=== PATIENT | female | born 1960 | race Caucasian/White ===

== ENCOUNTER 2016-11-13 13:45 | Emergency (ER) | payer OTHER ==
[~2016-11-13] VITALS: Ht 160 cm; Wt 92.2 kg
[~2016-11-13 13:45] MED LIST: AMA2; ASPI-1159; METF500T; PIOG15TA6; RAMI2.5C6; SIMV5TAB
[2016-11-13 15:07] LABS: CHLORIDE 105 mEq/L (98-107)
[2016-11-13 15:12] LABS: HEMATOCRIT 38.3 % (36.0-48.0); HEMOGLOBIN 13.1 g/dL (12.0-16.0); MEAN CORPUSCULAR HEMOGLOBIN 29.6 pg (28.0-32.0); MEAN CORPUSCULAR VOLUME 86.5 fL (81.0-99.0); PLATELET 333 x1000/uL (130-400); RED BLOOD CELL COUNT 4.42 mill/uL (4.2-5.4)
[2016-11-13 15:13] LABS: CARBON DIOXIDE 23 mEq/L (21-32)
[2016-11-13 19:21] VITALS: BP 141/76
== END 2016-11-13 19:24 | disposition home or self-care (01) ==
LOC: ER 16:22
DX: H53.2 Diplopia (principal); H43.393 Other vitreous opacities, bilateral; I10 Essential (primary) hypertension; E11.9 Type 2 diabetes mellitus without complications; Z79.82 Long term (current) use of aspirin; Z98.890 Other specified postprocedural states
CPT/HCPCS: 36415; 70450; 80048; 82962; 85027; 93005; 99285; Z7610

== ENCOUNTER 2018-03-10 20:16 | Emergency (ER) | payer OTHER ==
[~2018-03-10] VITALS: Ht 157.5 cm; Wt 91.7 kg
[~2018-03-10 20:16] MED LIST changes: -SIMV5TAB; +SIMV5TAB2
[2018-03-11] MEDS ORDERED: KETOROLAC 30MG/ML VIAL IV STA (01:32)
[2018-03-11] MEDS ORDERED: SODIUM CHLORIDE 0.9% 1,000 ML IV ONE (01:32)
[2018-03-11] MEDS ORDERED: FAMOTIDINE 20MG/2ML VIAL IV STA (01:32)
[2018-03-11 02:02] LABS: BASOPHILS % 1.2 % (0.0-2.0); HEMATOCRIT. 36.8 % (36.0-48.0); HEMOGLOBIN. 12.4 g/dL (12.0-16.0); LYMPHOCYTES % 35.5 % (20.0-50.0); MEAN CORPUSCULAR HEMOGLOBIN 29.9 pg (28.0-32.0); MEAN CORPUSCULAR VOLUME 88.9 fL (81.0-99.0); MEAN PLATELET VOLUME 7.8 fl (7.4-10.4); MONOCYTES % 7.3 % (2.0-8.0); PLATELET 311 x1000/uL (130-400); RED BLOOD CELL COUNT 4.13 mill/uL (4.2-5.4); RED CELL DISTRIBUTION WIDTH 12.9 % (11.6-14.6)
[2018-03-11 02:06] LABS: CHLORIDE 105 mEq/L (98-107)
[2018-03-11 02:35] LABS: CLARITY URINE CLEAR (CLEAR); COLOR URINE YELLOW (YELLOW); KETONES URINE TRACE (NEGATIVE); LEUKOCYTE ESTERASE URINE NEGATIVE (NEGATIVE); NITRITE URINE NEGATIVE (NEGATIVE); OCCULT BLOOD URINE NEGATIVE (NEGATIVE); PROTEIN URINE NEGATIVE (NEGATIVE); SPECIFIC GRAVITY URINE 1.026 (1.005-1.030); UROBILINOGEN URINE 0.2 E.U./dL (0.2-1.0)
[2018-03-11 04:31] VITALS: BP 129/54
== END 2018-03-11 04:32 | disposition home or self-care (01) ==
LOC: ER 20:16
DX: K80.20 Calculus of gallbladder without cholecystitis without obstruction (principal); R10.13 Epigastric pain; E11.9 Type 2 diabetes mellitus without complications; Z79.899 Other long term (current) drug therapy; Z98.890 Other specified postprocedural states
CPT/HCPCS: 36415; 71045; 76705; 80053; 81003; 83690; 85025; 96374; 96375; 99284; J1885; J3490; J7030